=== PATIENT | female | born 1985 | race Caucasian/White ===

== ENCOUNTER 2017-02-02 14:15 | Inpatient (IN) | payer BC, OTHER ==
[2017-02-02] MEDS ORDERED: CITRIC ACID/SODIUM CITRATE 30 ML UNIT-DOSE CUP PO ONE (14:40)
[2017-02-02] MEDS ORDERED: ELECTROLYTE-148 SOLN 500 ML IV ONE (14:40)
[2017-02-02] MEDS ORDERED: ELECTROLYTE-148 SOLN 1,000 ML IV SCH (15:10)
[2017-02-02 15:27] VITALS: BMI 27.6
--- NOTE | 2017-02-02 15:29 | HP ---
Past Medical History - Admission Chief Complaint: pruritis History of Present Illness: 31 y/o with SIUP at 37.4 weeks here for scheduled repeat delivery due to cholestasis of . Pt began experiencing pruritis approx 2 weeks ago, bile acids were initially normal however due to patient symptoms, she was started by MFM on ursodiol TID. On a repeat draw of bile acids, the values were trending upwards and patient was still symptomatic. Per MFM patient to be delivered. Patient has a prior delivery and cervix is unripe for induction, plan for repeat delivery. Pt s/p 3rd trimester testing, NST yesterday reactive. +FM, no VB/LOF/CTx. No other comlpaints/issues with . History Source: Patient, Medical Record Limitations to Obtaining History: No Limitations - Past Medical History DONOR SPECIALIST: No: Dementia, Seizure Cardiovascular: No: Aneurysm, HTN Pulmonary: Yes: Asthma Gastrointestinal: Yes: Other (cholestasis of ). No: GERD, Inflamatory Bowel Disease Renal/: No: UTI Reproductive: No: Ectopic , Fibroids ...: 2 ...Para: 1 ...Term: 1 ...: 0 ...Spon : 0 ...Induced : 0 ...LMP: 05/15/16 ... Weeks Gestation by Dates: 37.4 Heme/Onc: No: Sickle Cell Trait Infectious Disease: No: HIV, MRSA Psych: No: Anxiety, Bipolar, Depression Endocrine: No: Diabetes Mellitus, Hyperthyroidism, Hypothyroidism - Past Surgical History Past Surgical History: Yes: Hx Myomectomy: No Hx Transabdominal Cerclage: No - Smoking History Smoking history: Never smoked - Alcohol/Substance Use History of Substance Use: reports: None - Social History Usual Living Arrangement: Yes: With Spouse ADL: Independent History of Recent Travel: No Home Medications - Allergies Allergies/Adverse Reactions: Allergies Allergy/AdvReac Type Severity Reaction Status Date / Time No Known Allergies Allergy Verified 01/31/17 13:05 - Home Medications Home Medications: Ambulatory Orders Vitamins (Sjr) - 1 tab PO DAILY 01/26/17 Ursodiol [Actigal] 300 mg PO TID 01/26/17 Review of Systems - Review of Systems Constitutional: reports: No Symptoms Eyes: reports: No Symptoms HENT: reports: No Symptoms Neck: reports: No Symptoms Cardiovascular: reports: No Symptoms Respiratory: reports: No Symptoms Gastrointestinal: reports: No Symptoms Genitourinary: reports: No Symptoms Breasts: reports: No Symptoms Reported Musculoskeletal: reports: No Symptoms Integumentary: reports: No Symptoms Neurological: reports: No Symptoms Endocrine: reports: No Symptoms Hematology/Lymphatic: reports: No Symptoms Psychiatric: reports: No Symptoms Physical Exam - Maternity Constitutional: Yes: Well Nourished, No Distress, Calm Eyes: Yes: Conjunctiva Clear, EOM Intact HENT: Yes: Atraumatic, Normocephalic Neck: Yes: Supple, Trachea Midline Cardiovascular: Yes: Regular Rate and Rhythm Lungs: Clear to auscultation - Abdominal Exam/OB Fundal Height: 38 Number of Fetuses: Single Presentation: Vertex Contractions: No Monitor Mode: External Heart Rate (range): 135 Category: I Accelerations: Uniform Decelerations: None - Vaginal Exam/OB Vaginal Bleediing: No - Physical Exam Extremities: Yes: WNL Edema: No Psychiatric: Yes: Alert, Oriented Hemorrhage Risk Assessment - Risk Factors Medium Risk Factors: Yes: Prior , uterine surgery,or multiple laparotomies High Risk Factors: Yes: None Risk Score: 1 Risk Level: Medium Risk Problem List - Problems (1) Cholestasis during in third trimester Code(s): O26.613 - LIVER AND BILIARY TRACT DISORD IN , THIRD TRIMESTER K83.1 - OBSTRUCTION OF BILE DUCT (2) Term Code(s): Z34.80 - ENCOUNTER FOR SUPRVSN OF NORMAL , UNSP TRIMESTER (3) History of delivery Code(s): Z98.891 - HISTORY OF UTERINE SCAR FROM PREVIOUS SURGERY Assessment/Plan 31 y/o with SIUP at 37.4 weeks gestation here for scheduled repeat c sectino at 37.4 weeks due to cholestasis of - FHTS cat 1 - cholestasis of with increasing/trending bile acids - for delivery per [facility] recommendations - consents signed, R/B/A discussed - NPO, SCDs, Urbina catheter - Neonatology, nursing and anesthesia aware
[2017-02-02] MEDS ORDERED: METHYLERGONOVINE MALEATE 0.2 MG/1 ML AMP IM PRN (15:59)
[2017-02-02] MEDS ORDERED: oxyCODONE HCL 5 MG TABLET PO PRN ×2 (15:59)
[2017-02-02] MEDS ORDERED: IBUPROFEN 800 MG/8 ML IJ IVPB PRN ×2 (15:59→16:21)
[2017-02-02] MEDS ORDERED: OXYTOCIN 20 UNITS in 0.9% NS 1,000 ML IV SCH (16:00)
[2017-02-02] MEDS ORDERED: IBUPROFEN 600 MG TABLET (FP) PO PRN (16:20)
[2017-02-02] MEDS ORDERED: ONDANSETRON 4 MG/2 ML VIAL IVPB PRN (16:20)
[2017-02-02] MEDS ORDERED: morphine SULFATE/Preservative Free 0.5 MG/ML (1cc Syringe) EP ONE (16:20)
--- NOTE | 2017-02-02 17:03 | OP ---
Operative Note - Note: Operative Date: 02/02/17 Pre-Operative Diagnosis: SIUP at 37.4 weeks, prior delivery, cholestasis of Operation: Repeat Delivery Post-Operative Diagnosis: Same as Pre-op Surgeon: Alivia Moran Telemetry Monitor: Amadeo Earl Anesthesia: Spinal Specimens Removed: placenta Estimated Blood Loss (mls): 700 Operative Report Dictated: Yes
[2017-02-02] MEDS: FERROUS SO4 325 MG TABLET (FP) PO SCH (22:24)
[2017-02-03] MEDS: CEFAZOLIN 1 GM/D5W 50 ML IVPB SCH ×3 (00:54→09:59)
[2017-02-03 07:18] LABS: BASOPHIL 0.3 % (0-2.0); EOSINOPHIL 1.5 % (0-4.5); MCH 26.6 pg (25.7-33.7); MEAN CELL VOLUME 80.5 fl (80-96); NEUTROPHILS 80.1 % (42.8-82.8); PLATELET COUNT 174 K/MM3 (134-434); RDW 16.1 % (11.6-15.6); WHITE BLOOD COUNT 15.5 K/mm3 (4.0-10.0)
--- NOTE | 2017-02-03 09:16 | PN ---
Progress Note (short form) - Note Progress Note: Post op day#1.S/P C section under spinal anesthesia with duramorph uneventful.Patient and has little pain for which she is on medication.No any anesthesia related problem.Patient DC from the anesthesia care.
[2017-02-03] MEDS: FERROUS SO4 325 MG TABLET (FP) PO SCH ×2 (09:57→21:55)
[2017-02-03] MEDS: SIMETHICONE 80 MG TAB.CHEW (FP) PO PRN ×2 (15:43→22:04)
[2017-02-03] MEDS: IBUPROFEN 600 MG TABLET (FP) PO PRN ×2 (15:44→22:04)
[2017-02-03] MEDS: ACETAMINOPHEN 325 MG TABLET (FP) PO PRN ×2 (15:44→22:05)
[2017-02-03] MEDS ORDERED: BISACODYL 10 MG SUPP.RECT RC PRN (15:59)
[2017-02-03] MEDS ORDERED: CEFAZOLIN 1 GM/D5W 50 ML IVPB SCH (18:00)
[2017-02-03] MEDS ORDERED: CEFAZOLIN (PRE-DOCKED) 50 ML IVPB SCH (18:00)
--- NOTE | 2017-02-03 23:23 | PN ---
Progress Note, Physician Chief Complaint: s/p section day one she offers no complaines History of Present Illness: patient is doing well she offers no complaints. she is tolorating a regular diet and is ambulating without difficulty. - Current Medication List Current Medications: Active Medications Acetaminophen (Tylenol -) 650 mg PO Q4H PRN PRN Reason: FEVER OR PAIN Last Admin: 02/03/17 22:05 Dose: 650 mg Bisacodyl (Dulcolax Suppository -) 10 mg RC PRN PRN PRN Reason: CONSTIPATION Diphenhydramine HCl (Benadryl Injection -) 25 mg IVPUSH Q4H PRN PRN Reason: Pruritis Last Admin: 02/02/17 22:41 Dose: 25 mg Diphtheria/Tetanus/Acell Pertussis (Boostrix -) 0.5 ml IM .ONCE ONE Stop: 02/04/17 10:01 Ferrous Sulfate (Feosol -) 325 mg PO BID [facility] Last Admin: 02/03/17 21:55 Dose: 325 mg Parenteral Electrolytes (Plasma-Lyte 148 -) 1,000 mls @ 125 mls/hr IV ASDIR [facility] Last Admin: 02/02/17 15:45 Dose: 125 mls/hr Oxytocin/Sodium Chloride (Normal Saline+20 Units Oxytocin -) 1,000 mls @ 125 mls/hr IV ASDIR [facility] Last Admin: 02/02/17 17:15 Dose: 125 mls/hr Ibuprofen (Motrin -) 600 mg PO Q4H PRN PRN Reason: PAIN Last Admin: 02/03/17 22:04 Dose: 600 mg Ibuprofen (Caldolor Injection -) 800 mg IVPB Q8H PRN PRN Reason: PAIN OR FEVER Last Admin: 02/03/17 09:07 Dose: 800 mg Ibuprofen (Caldolor Injection -) 600 mg IVPB Q8H PRN PRN Reason: FEVER Methylergonovine Maleate (Methergine Injection -) 0.2 mg IM Q4H PRN PRN Reason: Excessive Bleeding (L&D) Oxycodone HCl (Roxicodone -) 5 mg PO Q4H PRN PRN Reason: PAIN LEVEL 1-5 Oxycodone HCl (Roxicodone -) 10 mg PO Q4H PRN PRN Reason: PAIN LEVEL 6-10 Simethicone (Mylicon -) 80 mg PO Q4H PRN PRN Reason: GAS Last Admin: 02/03/17 22:04 Dose: 80 mg - Objective Vital Signs: Vital Signs Temperature 98.2 F 02/03/17 14:00 Pulse Rate 100 H 02/03/17 14:00 Respiratory Rate 20 02/03/17 16:00 Blood Pressure 110/62 02/03/17 14:00 O2 Sat by Pulse Oximetry (%) Constitutional: Yes: Well Nourished, No Distress, Calm. No: Anxious, Ashen, Cachectic, Diaphoresis, Mild Distress, Moderate Distress, Severe Distress, Obese , Pallor, Poor Hygeine, Thin, Other Eyes: Yes: WNL HENT: Yes: WNL Neck: Yes: WNL, Tenderness Cardiovascular: Yes: WNL, S4 Respiratory: Yes: WNL, Regular Gastrointestinal: Yes: WNL ...Rectal Exam: Yes: Deferred Genitourinary: Yes: WNL Breast(s): Yes: WNL Musculoskeletal: Yes: WNL Extremities: Yes: WNL Edema: No Peripheral Pulses WNL: Yes Integumentary: Yes: WNL Wound/Incision: Yes: Dressing Dry and Intact Neurological: Yes: Alert, Oriented, Weakness Psychiatric: Yes: Alert, Oriented Labs: CBC, BMP 02/03/17 06:45 Assessment/Plan condition is stable on first post operative dayshe has returned to her normal bladder and bowel function she is passing flatus continue current care.
[2017-02-04] MEDS: SIMETHICONE 80 MG TAB.CHEW (FP) PO PRN ×4 (06:26→21:40)
[2017-02-04] MEDS: ACETAMINOPHEN 325 MG TABLET (FP) PO PRN ×4 (06:28→21:41)
[2017-02-04] MEDS: IBUPROFEN 600 MG TABLET (FP) PO PRN ×4 (06:28→21:40)
--- NOTE | 2017-02-04 09:23 | PN ---
Post Progress Note - Subjective Subjective: Pt seen/evaluated and doing well. Pain controlled, tolerating regular diet, ambulating, voiding and passing flatus. S/p BM X 2. Denies CP/SOB/F/C/MATA. Type of Delivery: Repeat C/S Vital Signs: Vital Signs Temperature 97.6 F 02/03/17 22:00 Pulse Rate 102 H 02/03/17 22:00 Respiratory Rate 18 02/03/17 22:00 Blood Pressure 97/62 02/03/17 22:00 O2 Sat by Pulse Oximetry (%) Breast Exam: Yes: Soft Uterus: Yes: Fundus below umbilicus Incision: Yes: Sutures intact Abdomen/GI: Yes: Abdomen soft, Passing flatus, Tolerating PO. No: Abdominal Distention, Tender Lochia: Yes: Rubra Lochia, amount: Small Extremities: Yes: Calves non-tender. No: Edema Perineum: Yes: Intact Activity: Ambulating - Labs Labs: CBC WBC 15.5 K/mm3 (4.0-10.0) H D 02/03/17 06:45 RBC 4.23 M/mm3 (3.60-5.2) 02/03/17 06:45 Hgb 11.2 GM/dL (10.7-15.3) 02/03/17 06:45 Hct 34.0 % (32.4-45.2) 02/03/17 06:45 MCV 80.5 fl (80-96) 02/03/17 06:45 MCH 26.6 pg (25.7-33.7) 02/03/17 06:45 MCHC 33.0 g/dl (32.0-36.0) 02/03/17 06:45 RDW 16.1 % (11.6-15.6) H 02/03/17 06:45 Plt Count 174 K/MM3 (134-434) 02/03/17 06:45 MPV 9.0 fl (7.5-11.1) 02/03/17 06:45 Neutrophils % 80.1 % (42.8-82.8) 02/03/17 06:45 Lymphocytes % 10.0 % (8-40) D 02/03/17 06:45 Monocytes % 8.1 % (3.8-10.2) 02/03/17 06:45 Eosinophils % 1.5 % (0-4.5) 02/03/17 06:45 Basophils % 0.3 % (0-2.0) 02/03/17 06:45 Problem List - Problems (1) Cholestasis during in third trimester Code(s): O26.613 - LIVER AND BILIARY TRACT DISORD IN , THIRD TRIMESTER K83.1 - OBSTRUCTION OF BILE DUCT (2) Term Code(s): Z34.80 - ENCOUNTER FOR SUPRVSN OF NORMAL , UNSP TRIMESTER (3) History of delivery Code(s): Z98.891 - HISTORY OF UTERINE SCAR FROM PREVIOUS SURGERY Assessment/Plan 31 y/o POD#2 s/p repeat c section - AFVSS - Hgb 11.2 post op, pt stable - encourage ambulation - regular diet, PO pain meds - routine care plan for discharge home in a.m.
[2017-02-04] MEDS: FERROUS SO4 325 MG TABLET (FP) PO SCH ×2 (09:27→21:40)
[2017-02-04] MEDS ORDERED: DIPHTH,PERTUSS(ACELL),TET 0.5 ML DISP.SYRIN IM ONE (13:15)
[2017-02-04 23:19] VITALS: PULSE 89
[2017-02-05] MEDS: IBUPROFEN 600 MG TABLET (FP) PO PRN ×2 (02:02→09:46)
[2017-02-05] MEDS: SIMETHICONE 80 MG TAB.CHEW (FP) PO PRN ×2 (02:02→09:46)
[2017-02-05] MEDS: ACETAMINOPHEN 325 MG TABLET (FP) PO PRN ×2 (02:02→09:47)
[2017-02-05 07:12] LABS: BASOPHIL 0.4 % (0-2.0); EOSINOPHIL 4.6 % (0-4.5); MCH 26.5 pg (25.7-33.7); MCHC 32.6 g/dl (32.0-36.0); MEAN CELL VOLUME 81.4 fl (80-96); MEAN PLT VOLUME 8.7 fl (7.5-11.1); NEUTROPHILS 67.4 % (42.8-82.8); PLATELET COUNT 190 K/MM3 (134-434); RDW 16.3 % (11.6-15.6); WHITE BLOOD COUNT 11.2 K/mm3 (4.0-10.0)
--- NOTE | 2017-02-05 08:17 | DS ---
Physical Exam-TECHNICAL SALES SPECIALIST Vital Signs: Vital Signs Temperature 98.0 F 02/04/17 22:00 Pulse Rate 89 02/04/17 22:00 Respiratory Rate 20 02/04/17 22:00 Blood Pressure 115/73 02/04/17 22:00 O2 Sat by Pulse Oximetry (%) Labs: CBC, BMP 02/05/17 06:30 Delivery - Delivery Type of Anesthesia: Spinal Episiotomy/Laceration: None EBL (cc): 700 Delivery, Single - Stages of Labor Date of Delivery: 02/02/17 Time of Delivery: 16:11 Time Placenta Delivered: 16:13 - Condition of Senior Qa Analyst/Box Sealing Inspector Present: Yes Name: Asia Kinney Gender: Female Weight: 7 lb 9 oz Position: Right, OT Total Hours ROM (Hrs/Mins): 1min - 1 Minute Total Score: 9 5 Minutes Total Score: 9 - Feeding Plan Initial Plan: Exclusive throughout hospitalization Discharge Summary Reason For Visit: C SECTION Current Active Problems Cholestasis during in third trimester (Acute) History of delivery (Acute) Term (Acute) Condition: Good - Instructions Diet, Activity, Other Instructions: Physical activity Resume your normal everyday activity as tolerated but no heavy lifting or strenuous exercise until seen by your surgeon. You may walk unlimited amounts and climb stairs. You may resume driving the car when you feel safe and comfortable behind the wheel- usually 2 weeks. No sexual activity as instructed for 6 weels. Wound care If there are tapes on the skin e leave them in place. They will peel off in the next 7 to 10 days. Do Not Peel them off. You may shower the day after surgery. If there are tapes present on the skin, you may shower over them. Diet There are no dietary restrictions. Eat healthy, high-fiber foods. Drink 6 to 8 glasses of liquid each day. This will assist in keeping your bowels regular. Pain management You may take Tylenol or Ibuprofen (for example, Motrin, Advil etc.) for mild pain. You may take any prescription medication as directed for severe pain. Call MD for any of the following: Severe pain not relieved by medication Fever of 101 or higher Excessive bleeding or drainage on dressing Inability to urinate Referrals: Alivia Moran DO [Staff Physician] - Disposition: HOME - Home Medications Comprehensive Discharge Medication List: Ambulatory Orders Vitamins (Sjr) - 1 tab PO DAILY 01/26/17 Ursodiol [Actigal] 300 mg PO TID 01/26/17 Ibuprofen [Motrin -] 600 mg PO QID PRN #28 tablet 02/05/17 Oxycodone HCl/Acetaminophen [Percocet 5-325 mg Tablet -] 1 tab PO Q4H #20 tablet MDD 6 02/05/17
[2017-02-05] MEDS: FERROUS SO4 325 MG TABLET (FP) PO SCH (09:46)
[2017-02-05 13:58] VITALS: BP 114/73; TEMP 98.2
--- NOTE | 2017-02-05 14:34 | OP ---
DATE OF OPERATION: 02/02/2017 PREOPERATIVE DIAGNOSES: 1. Intrauterine at 37 and 4/7 weeks gestation. 2. Cholestasis of . 3. Prior section. PROCEDURE: Repeat low transverse section. SURGEON: Alivia Moran DO FAMILY EDUCATOR: CARLA Chavez ESTIMATED BLOOD LOSS: 700 mL SPECIMENS REMOVED: Included placenta. COMPLICATIONS: None. COUNTS: Sponge, needle, and instrument count correct at the end of the procedure. DISPOSITION: Stable to recovery room. BRIEF HISTORY AND DESCRIPTION OF PROCEDURE: Patient is a 31-year-old G2, P1 female who has been followed in the office and diagnosed with cholestasis of . At which point, she was recommended to be delivered by Maternal Medicine at 37 weeks. Patient had a history of a prior section and was consented for a repeat delivery. Patient was admitted to [facility] on February 02, 2017. Consents for the procedure were signed. Patient was then taken back to the operating room where she was given spinal anesthesia and then placed in the dorsal supine position. She was prepped and draped in the usual sterile fashion, and a hard timeout was performed. A Urbina catheter had been placed under sterile conditions prior to the preparation. Next, a Pfannenstiel skin incision was created in the skin using a scalpel, and this incision was carried to the underlying layer of rectus fascia with the scalpel and the Bovie. The fascia was incised on either side of the midline with the Bovie, and the fascial incision was carried in a superolateral direction sharply. The fascia was tented upward and dissected off the underlying layer of rectus muscle with the Bovie. The midline of the musculature was laterally, and the peritoneum was entered sharply. Peritoneum was carefully dissected to allow for adequate room for delivery. A bladder blade was then inserted. A bladder flap was created, and the bladder blade was adjusted to protect the bladder. A transverse incision was created in the lower uterine segment, which was carried in a superolateral direction bluntly. The was then delivered from the ROT position without difficulty. Bilateral shoulders and remainder of the was delivered with ease. The cord was clamped twice and cut in between. The was taken over to the warmer to be assessed by the neonatology staff who was present for the entire delivery. The placenta was then delivered manually intact. The uterus was exteriorized from the abdomen, inspected and cleared of all blood clot, amniotic membrane, and debris with a dry lap sponge. The hysterotomy was then reapproximated in double-layer closure, first using 1 Vicryl, then using 0 Biosyn suture, both in a running locked fashion. Bilateral tubes and ovaries were inspected and noted to be normal. The posterior cul-de-sac was suctioned. The uterus was placed back into the abdomen. Bilateral gutters were inspected and cleared of all amniotic membrane and debris. Hysterotomy was again re-examined and noted to be hemostatic. The peritoneal layer was then reapproximated in a running fashion using chromic suture. The musculature was reapproximated using 0 Biosyn suture in several interrupted sutures. The fascia was then reapproximated using 1 Vicryl in a running fashion. The subcutaneous tissue was irrigated, using Vicryl suture in a running fashion, and the skin was reapproximated using 3-0 Vicryl suture in a subcuticular fashion. The patient tolerated the procedure well. Sponge, needle, and instrument count was reported to be correct. Steri-Strips were applied to the incision, and the patient was recovering in stable condition in the PACU of Labor and Delivery after the procedure. ALIVIA MORAN DO /[id number]
--- NOTE | 2017-02-07 09:15 | PATH ---
Surgical Pathology Report Patient Name: SHWETA BERRY [facility]. Rec. #: [id number] /Age/Gender: 1985 (Age: 31) / F Account: [id number] Location: [facility] OBS/CUTTING PRESSMAN Taken: 02/02/2017 Received: 02/04/2017 Reported: 02/07/2017 Physicians: Alivia Moran M.D. Specimen(s) Received PLACENTA Clinical History , 37.4 gestational weeks, scheduled repeat Final Diagnosis PLACENTA, DELIVERY: FOCALLY DISRUPTED THIRD TRIMESTER PLACENTA WITH INTERVILLOUS FIBRIN DEPOSITION, THREE VESSEL UMBILICAL CORD AND UNREMARKABLE PLACENTAL MEMBRANES. Electronically Signed Ernesto Beard M.D. Gross Description The specimen is received fresh labeled placenta and is a 565 gram, 21.0 x 17.0 x 1.3 cm. placenta with attached membranes and umbilical cord. The attached membranes are mcgarry, translucent with focal opacities and insert marginally. The umbilical cord measures 28 cm. in length and averages 1 cm. in diameter. The cord inserts centrally. No true knots or strictures are identified. Cut surface of the umbilical cord reveals 3 vessels. The surface is tijerina-blue with minimal fibrin deposition and appropriate caliber vessels. The maternal surface is red-brown with focal defects. Sectioning reveals red-brown, spongy parenchyma. No lesions are identified. Bird Raiser sections are submitted in three cassettes as follows: 1- membrane rolls and umbilical cord; 2-3- full thickness sections of placenta. /02/05/2017 saudi02/05/2017
== END 2017-02-05 11:50 | disposition home or self-care (01) | DRG 765 ==
LOC: JLDR 14:15 → J3W 17:40
PROVIDERS: ADMIT Obstetrics & Gynecology; ATTEND Obstetrics & Gynecology
PROC: 10D00Z1 Extraction of Products of Conception, Low, Open Approach (ICD-10-PCS; principal; 2017-02-02)
DX: O75.89 Other specified complications of labor and delivery (principal); K83.1 Obstruction of bile duct; O26.613 Liver and biliary tract disorders in pregnancy, third trimester; Z37.0 Single live birth; Z3A.37 37 weeks gestation of pregnancy
CPT/HCPCS: 36415; 85025; 88307-TC; 90715